=== PATIENT | female | born 1930 | race Caucasian/White ===

== ENCOUNTER 2016-07-15 11:36 | Inpatient (IN) | payer OTHER ==
[2016-07-15] MEDS ORDERED: CARDIZEM 100 MG/NS 100 ML IV SCH (12:15)
[2016-07-15 12:28] LABS: MANUAL DIFF NEEDED? NO
[2016-07-15 12:33] LABS: BASO% 0.9 % (0.0-0.8); EOS% 2.2 % (0.0-10.0); HEMATOCRIT 40.7 % (37.0-47.0); HEMOGLOBIN 13.5 g/dL (12.0-16.0); LYMPH# 2.17 X1000 (1.2-3.4); LYMPH% 24.1 % (20.5-51.1); MCH 31.3 PG (27-31); MCHC 33.2 g/dL (33-37); MCV 94.4 FL (81-99); MPV 10.4 FL (7.4-10.4); NEUT% 62.8 % (42.2-75.2); PLT 246 X1000 (130-400); RBC 4.31 XMIL (4.2-5.4)
[2016-07-15 12:39] LABS: INR 1.57; PROTIME 16.7 Seconds (9.2-11.7)
[2016-07-15 12:50] LABS: CALCIUM 9.2 mg/dL (8.8-10.2); POTASSIUM 3.3 mmol/L (3.5-5.1); TOTAL BILIRUBIN 0.76 mg/dL (0.20-1.00); TOTAL PROTEIN 6.6 g/dL (6.3-8.3)
[2016-07-15] MEDS ORDERED: NORCO-10 PO PRN (13:06)
--- NOTE | 2016-07-15 13:07 | Diag Imaging Result Document ---
PROCEDURE NAME: CHEST-2 VIEWS - 07/15/2016 CHEST X-RAY 2 VIEWS: COMPARISON: 05/07/2016. FINDINGS: Stable dual-chamber left-sided pacemaker. There is cardiomegaly and pulmonary vascular congestion. There is suggestion of some trace interstitial pulmonary edema. No pneumothorax or substantial pleural effusion. IMPRESSION: Cardiomegaly and interstitial pulmonary edema.
[2016-07-15] MEDS: 1/2 NS 1,000 ML IV SCH (14:14)
[2016-07-15] MEDS: CARDIZEM 100 MG/NS 100 ML IV SCH (14:15)
[2016-07-15] MEDS ORDERED: LANOXIN IV ONE (14:24)
[2016-07-15] MEDS ORDERED: LASIX IV ONE (14:24)
[2016-07-15] MEDS ORDERED: KLOR-CON PO ONE (14:29)
--- NOTE | 2016-07-15 15:11 | CONSULTATION ---
DATE OF CONSULTATION: 07/15/2016 HISTORY OF PRESENT ILLNESS: Patient is an 86-year-old lady who is well known to our service, has history of coronary artery disease, following pacemaker implantation, sick sinus syndrome, atrial fibrillation, came with not feeling well for the last 2-3 days. She has also noticed increasing palpitations for the last week or so. She denies chest pain. She had increasing shortness of breath. There is no dizziness or syncope. REVIEW OF SYSTEMS: A 14-point review of system was done. GI System: There is no history of nausea, vomiting, or diarrhea. There is no history of hematemesis or melena. Central nervous system: No focal weakness to suggest a CVA or TIA. System: There is no dysuria or hematuria. Psychiatric: Also family says that she has been having issues with having slightly altered mental status, being disoriented as well. PAST MEDICAL HISTORY: 1. Coronary artery disease, status post stent placement to right coronary artery in the past. 2. Sick sinus syndrome, status post Biotronik pacemaker placement, and generator change on 12/08/2014. 3. Peripheral vascular disease, history of right carotid endarterectomy. 4. Hyperlipidemia. 5. Hypothyroidism. 6. Pulmonary hypertension, severe COPD, tricuspid regurgitation, history of heart failure. CURRENT MEDICATIONS: Include currently: Cardizem drip, but from our office notes she was on Requip 4 mg a day, Cardizem CD 120, doxepin 75, Plavix 75, metformin 500 mg daily, Coumadin as directed. Simvastatin 10, nebulizers, Motrin as needed, hydrocodone as needed. SOCIAL HISTORY: She does not smoke. There is no history of alcohol abuse. ALLERGIES: She is allergic to morphine and penicillin. PHYSICAL EXAMINATION: Vital Signs: Blood pressure was 151/75. Jugular venous pressure was normal> First and second heart sounds were heard. There was no S3 gallop. There was systolic murmur. Respiratory System: Examination revealed bilateral wheeze and crepitations scattered. Abdomen: Soft, nontender. There was no guarding or rigidity. Bowel sounds were heard. Central nervous system: Alert, answering questions appropriately. Detailed central nervous system examination not performed. Extremities: Revealed trivial trace edema. ELECTROCARDIOGRAM: Revealed atrial fibrillation with a rate of 120 beats per minute. ASSESSMENT AND PLAN: Ms. Janice Larry is an 86-year-old lady with history of atrial fibrillation, coronary artery disease, heart failure, severe chronic obstructive pulmonary disease, is admitted with increasing palpitations, some disorientation and shortness of breath. Her laboratory examination revealed a sodium 141, potassium 3.3, BUN 17, creatinine 1.1, hemoglobin 13.5, hematocrit 40, platelet count 246,000, INR 1.57. PLAN: 1. She is in atrial fibrillation with rapid ventricular rate and then she has been started on a Cardizem drip in the past. She has been on Cardizem 120. Given the rapid rate she is on IV Cardizem. We will also add digoxin to her medical management. 2. For stroke prophylaxis she is on Coumadin. We will increase the dosage of Coumadin and make sure she is therapeutic. 3. Electrolyte imbalance. She is hypokalemic. We will give her 40 mEq of potassium chloride now. 4. X-ray suggestive of heart failure. She has severe COPD as well, and we will give her Lasix 40 mg IV now and 40 mg daily from tomorrow. 5. She has known coronary artery disease. We will rule out myocardial infarction by cardiac enzymes. Once she is better from her heart failure-COPD standpoint, we will plan for a Cardiolite stress test to assess for ischemia. She has known coronary artery disease, has had stent placement to the RCA in the past. 6. She has a pacemaker. We will interrogate the pacemaker. 7. She also has peripheral vascular disease with endarterectomy in the past. She is on aspirin and Plavix as listed in the home medications from our office. We will reconcile her home medications once we have that from her family. Thank you for the consult. We will follow hospital course.
--- NOTE | 2016-07-15 15:42 | EKG Report ---
Test Performed on : 07/15/2016 11:43:54 AM Test Reason : ams, afib with rvr Blood Pressure : / mmHG Vent. Rate : 124 BPM Atrial Rate : 144 BPM P-R Int : 000 ms QRS Dur : 084 ms QT Int : 396 ms P-R-T Axes : 000 091 238 degrees QTc Int : 568 ms Atrial fibrillation. with rapid ventricular response. with premature ventricular or aberrantly conduc dianne complexes. Nonspecific ST and T wave abnormality Abnormal ECG When compared with ECG of 15-JUL-2016 11:43, (Unconfirmed) New PVC couplets Confirmed by Larry Burnett DO ([id number]) on 07/15/2016 6:59:15 PM
[2016-07-15 18:34] LABS: URINE CULTURE NEEDED? NO; URINE MICRO REVIEW NEEDED? NO; URINE SOURCE CLEAN CATCH
[2016-07-15 18:45] LABS: BILIRUBIN URINE NEGATIVE (NEGATIVE); BLOOD URINE TRACE (NEGATIVE); COLOR STRAW; GLUCOSE URINE NEGATIVE (NEGATIVE); LEUKOCYTES URINE NEGATIVE (NEGATIVE); NITRITE URINE NEGATIVE (NEGATIVE); PH URINE 7.5; PROTEIN URINE NEGATIVE (NEGATIVE); SP GRAVITY URINE 1.007; TURBIDITY URINE CLEAR (CLEAR); UROBILINOGEN URINE NORMAL (NORMAL)
[2016-07-15 18:48] LABS: UR EPITHELIAL CELLS <10 /HPF (<10); URINE BACTERIA NEGATIVE /HPF; URINE RBC <10 /HPF (<10); URINE WBC <10 /HPF (<10)
--- NOTE | 2016-07-15 19:33 | HISTORY AND PHYSICAL ---
DIAGNOSIS OF ADMISSION: Ms. Larry is 86-year-old, white female and a known case of COPD, coronary artery disease, chronic atrial fibrillation, CHF, hypertension, maturity onset diabetes is admitted with change in mental status and she was found to be in atrial fibrillation with rapid ventricular rate. The patient was admitted from the office to the hospital. Other details. She has COPD and maturity onset diabetes and hypertension for a long time. She denies having any chest pains at this time however according to her her mental status has changed. She has been very anxious and somewhat depressed. PAST SURGICAL HISTORY: She has a permanent pacemaker put in. She also had a right hip fracture and hip replacement. She had right carotid endarterectomy and had disk surgery in the neck. Other details are noncontributory. SOCIAL HISTORY: She is a nonsmoker. Does not drink. ALLERGIES: PENICILLINS AND MORPHINE. MEDICATIONS: Include levothyroxine, simvastatin, doxepin, ropinirole, potassium, Lasix, clopidogrel, metformin, warfarin, diltiazem CD and albuterol inhaler as well as temazepam and Salome. REVIEW OF SYSTEMS: Other than what has been mentioned except for severe shortness of breath and anxiety it is noncontributory. PHYSICAL EXAMINATION: VITAL SIGNS: Reveal temperature normal, pulse 117 per minute, irregularly irregular, respiratory rate 19, blood pressure 133/88. HEENT: Head normocephalic. Pupils PERRLA. Fundus examination could not be done. Neck supple. JVP normal. ENT examination unremarkable. There is no evidence of lymphadenopathy, thyroid enlargement, pedal edema, calf tenderness, anemia, cyanosis or clubbing. Pedal pulses well felt. BREAST EXAM: Normal. CHEST: Reveals a left infraclavicular placement of the pacemaker generator. LUNGS: Reveal bilateral basilar rales with some expiratory wheezing. PMI in the normal position. HEART: Sounds normal. No murmur, gallop or rub noted. ABDOMEN: Nondistended. Hernial orifices normal. No guarding, rigidity, free fluid, masses, or organomegaly. Bowel sounds normal. RECTAL EXAM: Deferred. VICE PRESIDENT: Patient is very anxious. Speech normal. Cranial nerves normal, motor and sensory system examination unremarkable. Deep tendon reflexes normal. Plantars downgoing. Skull and spine examination normal for age. No cerebellar signs or signs of meningeal irritation. LOCOMOTOR EXAM: Unremarkable. SKIN EXAM: Unremarkable. IMPRESSION: Atrial fibrillation with rapid ventricular rate. PLAN: To rule out congestive heart failure. The patient has COPD, maturity onset diabetes and she has hypertension. Plan to start IV diltiazem and get a Cardiology consult.
[2016-07-15] MEDS: KLOR-CON PO SCH (20:29)
[2016-07-15] MEDS: LASIX PO SCH (20:29)
[2016-07-15] MEDS: PLAVIX PO SCH (20:29)
[2016-07-15] MEDS: SINEQUAN PO SCH (20:30)
[2016-07-15] MEDS: REQUIP PO SCH (20:30)
[2016-07-15] MEDS: ZOCOR PO SCH (20:30)
[2016-07-15] MEDS: RESTORIL PO PRN (23:40)
[2016-07-15] MEDS: ATIVAN IV PRN (23:49)
[2016-07-16] MEDS ORDERED: STERILE WATER INJ. INJ ONE (01:55)
[2016-07-16] MEDS ORDERED: GEODON IM ONE (01:55)
[2016-07-16] MEDS: NORCO-5 PO PRN (04:22)
[2016-07-16 05:19] LABS: CALCIUM 9.2 mg/dL (8.8-10.2); MAGNESIUM 2.2 mg/dL (1.5-2.7)
[2016-07-16 06:21] LABS: CK INDEX 3.4 (0.0-2.5); CK-MB 6.32 ng/mL (0.0-5.0)
--- NOTE | 2016-07-16 07:11 | EKG Report ---
Test Performed on : 07/16/2016 06:16:23 AM Test Reason : AFIB Blood Pressure : / mmHG Vent. Rate : 079 BPM Atrial Rate : 394 BPM P-R Int : 000 ms QRS Dur : 090 ms QT Int : 464 ms P-R-T Axes : 000 083 260 degrees QTc Int : 532 ms Atrial fibrillation. with premature ventricular or aberrantly conducted complexes. ST & T wave abnormality, consider inferior ischemia ST & T wave abnormality, consider anterolateral ischemia Prolonged QT Abnormal ECG When compared with ECG of 15-JUL-2016 11:43, Vent. rate has decreased BY 45 BPM T wave inversion more evident in Anterior leads ST now depressed in inferiorly T wave inversion now evident in inferiorly Marked T wave abnormality, consider anterolateral ischemia - new Confirmed by Larry Burnett DO ([id number]) on 07/16/2016 6:49:23 PM
[2016-07-16] MEDS: CARDIZEM 100 MG/NS 100 ML IV SCH ×2 (08:04→10:10)
[2016-07-16] MEDS ORDERED: LASIX PO SCH (09:00)
--- NOTE | 2016-07-16 09:44 | PROGRESS NOTE ---
DATE: 07/16/2016 Ms. Larry is feeling better. Her hemoglobin is 13.5 g. Potassium was 3.3. However, it is back to 4. Her proBNP was 4421. Cardiac enzymes have been negative. She has congestive heart failure. She had her ejection fraction measured before. We will continue with the current management. -2
[2016-07-16] MEDS: SYNTHROID PO SCH (10:16)
[2016-07-16] MEDS: LASIX PO SCH ×2 (10:16→21:25)
[2016-07-16] MEDS: KLOR-CON PO SCH ×2 (10:17→21:25)
[2016-07-16] MEDS: CARDIZEM CD PO SCH (10:17)
[2016-07-16] MEDS: GLUCOPHAGE PO SCH (10:17)
[2016-07-16] MEDS: SINEQUAN PO SCH ×2 (11:02→21:25)
[2016-07-16] MEDS: 1/2 NS 1,000 ML IV SCH (11:03)
[2016-07-16] MEDS: VENTOLIN HFA INH PRN (15:30)
[2016-07-16] MEDS: LANOXIN PO SCH (16:15)
[2016-07-16] MEDS: ZOCOR PO SCH (21:25)
[2016-07-16] MEDS: PLAVIX PO SCH (21:25)
[2016-07-16] MEDS: REQUIP PO SCH (21:25)
[2016-07-16] MEDS: COUMADIN PO SCH (21:25)
[2016-07-16] MEDS: ATIVAN IV PRN (21:51)
[2016-07-16] MEDS: RESTORIL PO PRN (23:36)
[2016-07-17] MEDS: NORCO-5 PO PRN (01:12)
[2016-07-17] MEDS: ATIVAN IV PRN ×2 (03:06→17:57)
[2016-07-17] MEDS: CARDIZEM CD PO SCH ×2 (07:50→08:47)
[2016-07-17] MEDS: LANOXIN PO SCH ×2 (07:50→08:47)
--- NOTE | 2016-07-17 07:56 | EKG Report ---
Test Performed on : 07/17/2016 07:28:29 AM Test Reason : a fib with rvr Blood Pressure : / mmHG Vent. Rate : 104 BPM Atrial Rate : 300 BPM P-R Int : 000 ms QRS Dur : 084 ms QT Int : 340 ms P-R-T Axes : 000 081 -78 degrees QTc Int : 447 ms Atrial fibrillation. with rapid ventricular response. ST & T wave abnormality, consider anterior ischemia Abnormal ECG When compared with ECG of 16-JUL-2016 06:16, Persistance of non-specific ST changes inferior (slightly depressed; but unchanged) T wave inversion in V3- and V4 is resolved - clinic Clinical Correlation advised Nonspecific ST and T wave abnormality far lateral leads is persistant V4-V6 Confirmed by Larry Burnett DO ([id number]) on 07/20/2016 3:51:50 PM
[2016-07-17] MEDS: SYNTHROID PO SCH (08:47)
[2016-07-17] MEDS: KLOR-CON PO SCH ×2 (08:47→20:40)
[2016-07-17] MEDS: GLUCOPHAGE PO SCH (08:47)
[2016-07-17] MEDS: SINEQUAN PO SCH ×2 (08:47→20:40)
[2016-07-17] MEDS: LASIX PO SCH ×2 (08:47→20:40)
--- NOTE | 2016-07-17 09:18 | PROGRESS NOTE ---
DATE: 07/17/2016 SUBJECTIVE: Ms. Larry is a nervous person. She is in congestive heart failure. Has atrial fibrillation with rapid VR. She is getting the Cardizem IV. Overall condition is unchanged. We will repeat her electrolytes in the morning. -3
[2016-07-17] MEDS ORDERED: LASIX IV ONE (10:32)
[2016-07-17] MEDS: VENTOLIN HFA INH PRN (10:42)
[2016-07-17] MEDS: REQUIP PO SCH (20:39)
[2016-07-17] MEDS: COUMADIN PO SCH (20:40)
[2016-07-17] MEDS: ZOCOR PO SCH (20:40)
[2016-07-17] MEDS: PLAVIX PO SCH (20:40)
[2016-07-18 05:50] LABS: INR 1.15; PROTIME 12.2 Seconds (9.2-11.7)
[2016-07-18 06:02] LABS: CALCIUM 9.1 mg/dL (8.8-10.2); POTASSIUM 4.5 mmol/L (3.5-5.1)
--- NOTE | 2016-07-18 07:46 | Diag Imaging Result Document ---
PROCEDURE NAME: CHEST-1 VIEW - 07/18/2016 PORTABLE CHEST: TIME: 0535 hours. FINDINGS: The inspiration is better, and the heart size is smaller than on 09/2016. The lung bases are clear. IMPRESSION: No evidence of acute disease. [facility]
--- NOTE | 2016-07-18 08:57 | PROGRESS NOTE ---
DATE: 07/18/2016 Ms. Larry is getting a stress test today. She is very much upset and crying. Her BUN is 31, creatinine is 1.3, and INR is 1.15. Electrolyte status is normal. Overall condition is, otherwise, unchanged. She is getting a stress test today. I am going to order her some furosemide on a daily basis. -5
[2016-07-18] MEDS ORDERED: LASIX IV SCH (09:00)
[2016-07-18] MEDS ORDERED: LEXISCAN ONE (09:20)
[2016-07-18] MEDS ORDERED: AMINOPHYLLINE ONE (09:34)
[2016-07-18] MEDS: GLUCOPHAGE PO SCH (10:53)
[2016-07-18] MEDS: KLOR-CON PO SCH ×2 (10:53→20:35)
[2016-07-18] MEDS: SINEQUAN PO SCH ×2 (10:53→20:36)
[2016-07-18] MEDS: CARDIZEM CD PO SCH (10:53)
[2016-07-18] MEDS: LANOXIN PO SCH (10:53)
[2016-07-18] MEDS: SYNTHROID PO SCH (10:54)
[2016-07-18] MEDS: NORCO-5 PO PRN ×2 (13:14→21:35)
[2016-07-18] MEDS ORDERED: ZOFRAN IV PRN (14:23)
--- NOTE | 2016-07-18 14:44 | Diag Imaging Result Document ---
PROCEDURE NAME: MYOCARDIAL PERF SCAN, STR/REST - 07/18/2016 LEXISCAN CARDIOLITE STRESS TEST: Lexiscan was infused per standard protocol. Baseline electrocardiogram revealed atrial fibrillation with nonspecific ST-T changes. Stress electrocardiogram was nondiagnostic for ischemia. The patient developed nausea following Lexiscan infusion and was given 75 mg of IV aminophylline. Symptoms abated. 10.6 mCi of Cardiolite was injected for the rest phase, 31.5 mCi of Cardiolite was injected for the stress phase. Gated SPECT images were obtained in standard views. Images revealed significant chest wall and diaphragmatic attenuation. In addition, there was motion artifact. There is low-grade, small- sized fixed defect in the left ventricular apex with normal wall motion. This is likely to represent attenuation defect, and there was significant motion artifact as well. There was no definite evidence of ischemia. Left ventricular ejection fraction 68%. Wall motion was normal. CONCLUSIONS: 1. No chest pain. 2. Nondiagnostic stress electrocardiogram. 3. Baseline atrial fibrillation. 4. Myocardial perfusion images revealed no evidence of ischemia. 5. There is low-grade, small-sized fixed defect in the left ventricular apex with normal wall motion and significant chest wall attenuation and motion artifact. This is likely to represent attenuation defect. Low probability of scar. 6. Left ventricular ejection fraction 68%. Wall motion was normal.
[2016-07-18] MEDS: ATIVAN IV PRN ×2 (16:30→23:51)
[2016-07-18] MEDS: REQUIP PO SCH (20:35)
[2016-07-18] MEDS: COUMADIN PO SCH (20:35)
[2016-07-18] MEDS: PLAVIX PO SCH (20:35)
[2016-07-18] MEDS: ZOCOR PO SCH (20:36)
[2016-07-18] MEDS ORDERED: CARDIZEM PO ONE (21:00)
[2016-07-18] MEDS: RESTORIL PO PRN (21:35)
[2016-07-19 05:33] LABS: INR 1.13
[2016-07-19 06:39] LABS: MAGNESIUM 2.3 mg/dL (1.5-2.7)
[2016-07-19] MEDS: NORCO-5 PO PRN (08:08)
[2016-07-19] MEDS: LASIX PO SCH (08:09)
[2016-07-19] MEDS: KLOR-CON PO SCH ×2 (08:09→20:31)
[2016-07-19] MEDS: CARDIZEM CD PO SCH (08:09)
[2016-07-19] MEDS: SYNTHROID PO SCH (08:09)
[2016-07-19] MEDS: SINEQUAN PO SCH ×2 (08:09→20:31)
[2016-07-19] MEDS: LANOXIN PO SCH (08:09)
[2016-07-19] MEDS: GLUCOPHAGE PO SCH (08:09)
--- NOTE | 2016-07-19 09:55 | PROGRESS NOTE ---
DATE: 07/19/2016 SUBJECTIVE: The patient says she just does not feel well. She is very tearful, apparently has been on other occasions. She is upset about her 's health. OBJECTIVE: Vital Signs: Blood pressure 132/75, respirations 22, pulse 86, temp 97.8 degrees Fahrenheit. HEENT: She is normocephalic and is intact. PERRLA. Throat clear. Lungs: Clear to auscultation and percussion without rhonchi, rales, or wheezes. Chest x-ray yesterday was clear. Heart: Irregularly irregular without murmurs, gallops, or friction rubs with heart rates in the 80s to 100s. Abdomen: Soft. Active bowel sounds. No organomegaly or tenderness. Neurological exam: Intact grossly. She is emotionally labile. She is on medication for that. She does have diabetes and heart failure. ASSESSMENT: 1. Atrial fibrillation with rapid ventricular response. 2. Congestive heart failure, now under control. 3. Emotionally lability with depression. 4. Dementia. 5. Hyperlipidemia. 6. Restless leg syndrome. 7. Coronary artery disease. 8. Hypertension. PLAN: We will continue care.
[2016-07-19] MEDS: ATIVAN IV PRN ×2 (10:08→16:58)
--- NOTE | 2016-07-19 13:55 | PROGRESS NOTE ---
DATE: 07/19/2016 SUBJECTIVE: She denies any issues. No heart racing. PHYSICAL EXAMINATION: Vital signs: She is afebrile. Heart rates over the last several checks have been anywhere from the 70s to low 100s. Blood pressure most recently is 130/70. General: No acute distress. Cardiovascular: She is irregularly irregular. Rate controlled atrial fibrillation. No lower extremity edema. Chest: Clear bilaterally. No increased work of breathing. Abdomen: Soft, nontender, nondistended. No obvious organomegaly. Skin Exam: Warm and dry throughout without any rashes PERTINENT DATA: Sodium is 136, potassium is 5, BUN 33, creatinine 1.3. Myocardial perfusion scan report was reviewed from yesterday. ASSESSMENT: Atrial fibrillation. PLAN: Patient may be discharged from a cardiovascular standpoint. Her rate seems improved. She has been escalated on her rate controlling medications with the increase of diltiazem to 180 mg and the addition of digoxin. Her myocardial perfusion scan yesterday was low risk. If she is okay for discharge from her primary team standpoint, it is certainly reasonable to discharge home from a cardiovascular standpoint. I will let the primary team know.
[2016-07-19] MEDS: REQUIP PO SCH (20:31)
[2016-07-19] MEDS: RESTORIL PO PRN (20:31)
[2016-07-19] MEDS: PLAVIX PO SCH (20:31)
[2016-07-19] MEDS: COUMADIN PO SCH (20:31)
[2016-07-19] MEDS: ZOCOR PO SCH (20:31)
[2016-07-20 07:22] VITALS: BP 144/56
[2016-07-20] MEDS: GLUCOPHAGE PO SCH (08:16)
[2016-07-20] MEDS: CARDIZEM CD PO SCH (08:16)
[2016-07-20] MEDS: SINEQUAN PO SCH (08:17)
[2016-07-20] MEDS: SYNTHROID PO SCH (08:17)
[2016-07-20] MEDS: LANOXIN PO SCH (08:17)
[2016-07-20] MEDS: LASIX PO SCH (08:17)
[2016-07-20] MEDS: KLOR-CON PO SCH (08:17)
[2016-07-20] MEDS: ATIVAN IV PRN (08:17)
--- NOTE | 2016-07-20 10:02 | PROGRESS NOTE ---
DATE: 07/20/2016 SUBJECTIVE: The patient says she is feeling better. She is not nearly as tearful. She is eating well. Does not have any new complaints. OBJECTIVE: Vital Signs: Blood pressure 144/56, respirations 16, pulse 86, temperature 98 degrees Fahrenheit. HEENT: She is normocephalic. EOMs intact. PERRLA. Throat clear. Lungs: Clear to auscultation and percussion without rhonchi, rales, or wheezes. Heart: Irregularly irregular but rate controlled in the 80s without murmurs, gallops, or friction rubs. Abdomen: Soft. Active bowel sounds. No organomegaly or tenderness. Neurological: Examination intact grossly. ASSESSMENT: 1. Atrial fibrillation with rapid ventricular response. 2. History of congestive heart failure. 3. History of chronic obstructive pulmonary disease. PLAN: We will discharge home with her new medications of digoxin 125 mcg daily, furosemide 40 mg daily, Cardizem CD 180 mg daily, and warfarin 5 mg p.o. at bedtime. She will follow up with Dr. Munoz and call for an appointment on Thursday.
--- NOTE | 2016-07-21 06:32 | EKG Report ---
Test Performed on : 07/18/2016 2:54:02 PM Test Reason : Increased heart rate Blood Pressure : / mmHG Vent. Rate : 106 BPM Atrial Rate : 131 BPM P-R Int : 000 ms QRS Dur : 084 ms QT Int : 308 ms P-R-T Axes : 000 085 260 degrees QTc Int : 409 ms Atrial fibrillation. with rapid ventricular response. ST & T wave abnormality, consider anterior ischemia Abnormal ECG When compared with ECG of 17-JUL-2016 07:28, (Unconfirmed) No significant change was found Confirmed by Larry Burnett DO ([id number]) on 07/22/2016 7:38:19 AM
--- NOTE | 2016-07-21 08:55 | DISCHARGE SUMMARY ---
ADMISSION DATE: 07/15/2016 DISCHARGE DATE: 07/20/2016 HISTORY AND HOSPITAL COURSE: Ms. Mejia, who is an 86-year-old white female, was admitted with shortness of breath, atrial fibrillation with rapid ventricular rate. She was seen in cardiology consult with Dr. David Quintana. LAB DATA IN THE HOSPITAL: Chest x-ray revealed cardiomegaly, intermittent pulmonary edema. Stress test revealed no coronary artery disease. She has baseline atrial fibrillation. Other lab data revealed CBC was unremarkable. INR was 1.13. Electrolytes are normal. BUN 33, creatinine 1.3. Urinalysis was unremarkable. She was watched on telemetry. Initially Cardizem drip was put in. She was managed in ICU and later on admitted. She continued to improve and we decided to finally discharge her. She was discharged with Lanoxin as well as Lasix and Cardizem CD 180 mg, warfarin [address] Varner. I will see her in the office in a week or so. FINAL DIAGNOSES: 1. Atrial fibrillation with rapid ventricular response. 2. Congestive heart failure. 3. Sick sinus syndrome. 4. Anxiety state. 5. Diabetes. 6. Chronic obstructive pulmonary disease. FOLLOWUP: She will be followed regularly.
--- NOTE | 2016-07-24 08:25 | DISCHARGE SUMMARY ---
ADMISSION DATE: 07/15/2016 DISCHARGE DATE: 07/20/2016 DISCHARGE SUMMARY ADDENDUM: The patient was admitted with atrial fibrillation with rapid ventricular rate. She was also in congestive heart failure. Her pro BNP was 4421. Echocardiogram was not done this time as it has been done numerous times in the past and ejection fraction has been low. She has both [id number] diastolic congestive heart failure during this admission.
== END 2016-07-20 11:15 | disposition home or self-care (01) | DRG 308 ==
LOC: EDIPHOLD 13:28 → 3S 07-16 07:40
PROVIDERS: ADMIT Internal Medicine; ATTEND Internal Medicine
DX: I48.91 Unspecified atrial fibrillation (principal); I50.33 Acute on chronic diastolic (congestive) heart failure; E11.51 Type 2 diabetes mellitus with diabetic peripheral angiopathy without gangrene; F03.90 Unspecified dementia, unspecified severity, without behavioral disturbance, psychotic disturbance, mood disturbance, and anxiety; I27.2 Other secondary pulmonary hypertension; I11.0 Hypertensive heart disease with heart failure; J44.9 Chronic obstructive pulmonary disease, unspecified; E11.9 Type 2 diabetes mellitus without complications; F32.9 Major depressive disorder, single episode, unspecified; G25.81 Restless legs syndrome; Z95.0 Presence of cardiac pacemaker; Z79.899 Other long term (current) drug therapy; Z79.01 Long term (current) use of anticoagulants; Z79.84 Long term (current) use of oral hypoglycemic drugs; Z79.02 Long term (current) use of antithrombotics/antiplatelets; E78.5 Hyperlipidemia, unspecified; F41.9 Anxiety disorder, unspecified; I25.10 Atherosclerotic heart disease of native coronary artery without angina pectoris; Z95.5 Presence of coronary angioplasty implant and graft; I07.1 Rheumatic tricuspid insufficiency; E87.6 Hypokalemia
CPT/HCPCS: 71010; 71020; 78452; 80048; 80053; 81001; 82550; 82553; 82948; 83735; 83880; 84484; 85025; 85610; 93005; 93010; 93017; 94640; 94761; A9500; J0280; J1160; J1940; J2060; J2405; J3486; J0820